=== PATIENT | female | born 2005 | race Hispanic/Latino ===

== ENCOUNTER 2023-09-30 14:07 | Emergency (ER) | payer SELFPAY ==
[2023-09-30] MEDS ORDERED: diphenhydrAMINE 50 MG/ML VIAL ONE (14:30)
[2023-09-30] MEDS ORDERED: Dexamethasone 10 MG/ML VIAL ONE (14:30)
[2023-09-30] MEDS ORDERED: EPINEPHrine 1 MG/ML VIAL ONE (14:30)
[2023-09-30] MEDS ORDERED: predniSONE 20 MG TAB ONE (14:31)
[2023-09-30] MEDS ORDERED: Famotidine/PF 20 mg/2ml Vial ONE (14:31)
== END 2023-09-30 16:17 | disposition home or self-care (01) ==
LOC: ERS 14:07
DX: T88.6XXA Anaphylactic reaction due to adverse effect of correct drug or medicament properly administered, initial encounter (principal); F17.290 Nicotine dependence, other tobacco product, uncomplicated
CPT/HCPCS: 96361; 96372; 96374; 96375; J0171; J1100; J1200; J7512; S0028